=== PATIENT | male | born 1990 | race Caucasian/White ===

== ENCOUNTER 2018-12-07 20:38 | Emergency (ER) | payer MEDICAID, OTHER ==
[~2018-12-07] VITALS: Ht 180.3 cm; Wt 110.0 kg
[~2018-12-07 20:38] MED LIST: CLON-529 PO; ONDA4TAB6 PO
--- NOTE | 2018-12-07 22:31 | NUR ---
no appropriate RAP assessement. denies HI and SI. reports depression/sadness. no suicidal plan
[2018-12-07] MEDS ORDERED: HYDR-3686 PO (23:16)
== END 2018-12-07 23:36 | disposition home or self-care (01) ==
LOC: ER 20:38
DX: F32.9 Major depressive disorder, single episode, unspecified (principal); F17.200 Nicotine dependence, unspecified, uncomplicated; F11.10 Opioid abuse, uncomplicated; Z88.0 Allergy status to penicillin; Z88.2 Allergy status to sulfonamides; Z88.1 Allergy status to other antibiotic agents; Z79.899 Other long term (current) drug therapy
CPT/HCPCS: 99284

== ENCOUNTER 2023-10-06 00:49 | Inpatient (IN) | payer MEDICAID ==
[~2023-10-06] VITALS: Ht 180.3 cm; Wt 84.1 kg
[2023-10-06 01:27] LABS: BASOPHILS # (AUTO) 0.1 X10'3 (0-0.2); BASOPHILS % (AUTO) 1.1 % (0-1); EOSINOPHILS # (AUTO) 0.1 X10'3 (0-0.9); EOSINOPHILS % (AUTO) 1.1 % (0-6); HEMATOCRIT 39.2 % (42.0-52.0); HEMOGLOBIN 13.4 g/dl (14.0-17.9); LYMPHOCYTES # (AUTO) 3.5 X10'3 (1.1-4.8); LYMPHOCYTES % (AUTO) 39.4 % (21-51); MEAN CORPUSCULAR HEMOGLOBIN 30.2 PG (27.0-31.0); MEAN CORPUSCULAR HGB CONC 34.1 g/dL (33.0-36.5); MEAN CORPUSCULAR VOLUME 88.7 FL (78-98); MEAN PLATELET VOLUME 6.8 FL (7.4-10.4); MONOCYTES # (AUTO) 0.3 X10'3 (0-0.9); MONOCYTES % (AUTO) 3.3 % (2-12); NEUTROPHILS # (AUTO) 4.8 X10'3 (1.8-7.7); NEUTROPHILS % (AUTO) 55.1 % (42-75); PLATELET COUNT 346 X10'3 (140-440); RED BLOOD COUNT 4.42 X10'6 (4.70-6.10); RED CELL DISTRIBUTION WIDTH 13.2 % (11.5-14.5); WHITE BLOOD COUNT 8.8 X10'3 (4.5-11.0)
[2023-10-06 01:40] LABS: ALANINE AMINOTRANSFERASE 35 U/L (12-78); ALBUMIN 3.7 G/DL (3.4-5.0); ALBUMIN/GLOBULIN RATIO 1.1 (1.1-1.5); ALKALINE PHOSPHATASE 75 IU/L (46-116); ANION GAP 7 (8-16); ASPARTATE AMINO TRANSFERASE 30 U/L (10-37); BILIRUBIN,TOTAL 0.6 MG/DL (0.1-1.0); BLOOD UREA NITROGEN 11 MG/DL (7-18); BUN/CREATININE RATIO 9.7 (10.0-20.0); CALCIUM 9.2 MG/DL (8.5-10.1); CHLORIDE 102 MMOL/L (99-107); CREATININE 1.13 MG/DL (0.60-1.10); GLUCOSE 145 MG/DL (70-104); POTASSIUM 3.2 MMOL/L (3.5-5.1); SODIUM 138 MMOL/L (135-145); TOTAL CARBON DIOXIDE 29.1 MMOL/L (24-32); TOTAL PROTEIN 7.1 G/DL (6.4-8.2); eCRCL 99 ML/MIN; eGFR 75 ML/MIN
[2023-10-06 01:49] LABS: PRO BRAIN NATRIURETIC PEPTIDE 54 PG/ML (0-125)
[2023-10-06] MEDS ORDERED: potassium Cl 20 mEq SR tablet PO STA (01:58)
[2023-10-06] MEDS ORDERED: ondansetron 4mg rapidly disintigrating tab PO ONE (02:00)
[2023-10-06 02:20] LABS: ETHANOL < 10 MG/DL (<10)
[2023-10-06] MEDS ORDERED: iohexol 300mg/ml 100ml inj. ONE (02:26)
[2023-10-06] MEDS ORDERED: iohexol 350MG/ML 100ml bottle IV ONE (02:27)
[2023-10-06] MEDS ORDERED: potassium Cl 40MEQ/1/2NS 520ml 520 ML IV PRN (04:45)
[2023-10-06] MEDS ORDERED: magnesium hydroxide 30ml (MOM) UD suspension PO PRN (04:45)
[2023-10-06] MEDS ORDERED: potassium Cl 20 mEq SR tablet PO PRN (04:45)
[2023-10-06] MEDS ORDERED: ondansetron/PF 4mg/2ml inj IV PRN (04:45)
[2023-10-06] MEDS ORDERED: PERFLUTREN PROTEIN-A MICROSPHR (Optison) 0.22 MG/ML 3ML VIAL IV ONE (04:45)
[2023-10-06] MEDS ORDERED: magnesium Cl slow-release 64mg tablet PO PRN (04:45)
[2023-10-06] MEDS ORDERED: acetaminophen 325mg tablet PO PRN (04:45)
[2023-10-06] MEDS ORDERED: magnesium 2GM in 50ml NS 50 ML IV PRN (04:45)
[2023-10-06] MEDS ORDERED: mag hydrox/Alum hydrox/simeth 30ml oral suspension PO PRN (04:45)
[2023-10-06] MEDS ORDERED: magnesium 4gm in 100ml NS 100 ML IV PRN (04:45)
[2023-10-06 06:08] LABS: MAGNESIUM 1.9 MG/DL (1.5-2.4)
[2023-10-06 07:25] LABS: BILIRUBIN,URINE NEGATIVE (Neg); CLARITY,URINE CLEAR (Clear); COLOR,URINE YELLOW (Yellow); GLUCOSE, URINE NEGATIVE (Neg); KETONES,URINE NEGATIVE (Neg); LEUKOCYTE ESTERASE ,URINE NEGATIVE (Neg); NITRITES, URINE NEGATIVE (Neg); OCCULT BLOOD,URINE NEGATIVE (Neg); PROTEIN,URINE NEGATIVE (Neg); UROBILINOGEN,URINE 0.2 E.U/dL (0.2-1.0)
[2023-10-06 07:26] LABS: UA COLLECTION TYPE CLN CATCH MIDSTREAM
[2023-10-06 07:34] LABS: URINE AMPHETAMINE SCREEN POSITIVE (Neg); URINE BARBITUATE SCREEN NEGATIVE (Neg); URINE BENZODIAZEPINES SCREEN NEGATIVE (Neg); URINE CANNABINOID SCREEN POSITIVE (Neg); URINE COCAINE SCREEN NEGATIVE (Neg); URINE METHADONE SCREEN NEGATIVE (Neg); URINE OPIATE SCREEN NEGATIVE (Neg); URINE PHENCYCLIDINE SCREEN NEGATIVE (Neg)
[2023-10-06 07:45] VITALS: BP 111/76; PULSE 67; RESP 11; TEMP 98.1; O2SAT 96
[2023-10-06] MEDS: heparin, porcine 5000 units/ml vial SQ SCH ×2 (08:00→19:44)
[2023-10-06] MEDS: K and/or MAG REPLACEMENT MC SCH ×2 (08:00→20:00)
[2023-10-06] MEDS: docusate sod 100mg capsule PO SCH ×2 (08:00→20:00)
[2023-10-06 11:00] VITALS: BP 134/72; PULSE 61; RESP 16; TEMP 98.3; O2SAT 99
[2023-10-06] MEDS ORDERED: NO HOME MEDS (14:24)
[2023-10-06 15:00] VITALS: BP 113/70; PULSE 88; RESP 18; TEMP 98.2; O2SAT 99
[2023-10-06] MEDS: potassium Cl 20 mEq SR tablet PO PRN ×2 (16:48→21:06)
[2023-10-06 18:00] VITALS: BP 125/72; PULSE 60; RESP 16; TEMP 98.4; O2SAT 100
[2023-10-06 22:00] VITALS: BP 104/50; PULSE 57; RESP 18; TEMP 98.2; O2SAT 98
[2023-10-07] MEDS: potassium Cl 20 mEq SR tablet PO PRN (02:25)
[2023-10-07 02:30] VITALS: BP 121/63; PULSE 53; RESP 18; TEMP 98.3; O2SAT 99
[2023-10-07 06:54] LABS: ALANINE AMINOTRANSFERASE 29 U/L (12-78); ALBUMIN 3.2 G/DL (3.4-5.0); ALBUMIN/GLOBULIN RATIO 0.9 (1.1-1.5); ALKALINE PHOSPHATASE 75 IU/L (46-116); ANION GAP 6 (8-16); ASPARTATE AMINO TRANSFERASE 22 U/L (10-37); BILIRUBIN,TOTAL 0.2 MG/DL (0.1-1.0); BLOOD UREA NITROGEN 14 MG/DL (7-18); BUN/CREATININE RATIO 15.2 (10.0-20.0); CALCIUM 8.7 MG/DL (8.5-10.1); CHLORIDE 104 MMOL/L (99-107); CREATININE 0.92 MG/DL (0.60-1.10); GLUCOSE 111 MG/DL (70-104); MAGNESIUM 2.1 MG/DL (1.5-2.4); POTASSIUM 3.8 MMOL/L (3.5-5.1); SODIUM 140 MMOL/L (135-145); TOTAL CARBON DIOXIDE 30.4 MMOL/L (24-32); TOTAL PROTEIN 6.8 G/DL (6.4-8.2); eCRCL 122 ML/MIN; eGFR > 90 ML/MIN
[2023-10-07 07:16] VITALS: BP 121/68; PULSE 56; RESP 18; TEMP 98.3; O2SAT 100
[2023-10-07] MEDS: K and/or MAG REPLACEMENT MC SCH (08:00)
[2023-10-07] MEDS: docusate sod 100mg capsule PO SCH (08:00)
[2023-10-07] MEDS: heparin, porcine 5000 units/ml vial SQ SCH (08:44)
[2023-10-07 10:00] VITALS: BP 115/72; PULSE 61; RESP 13; TEMP 98.5; O2SAT 100
== END 2023-10-07 16:01 | disposition home or self-care (01) | DRG 204 ==
LOC: ER 00:50 → ED HOLD 04:48 → EDBEDREQ 06:57 → PCU 3S 07:30
PROVIDERS: ADMIT Internal Medicine; ATTEND Family Medicine
PROC: B32T1ZZ Computerized Tomography (CT Scan) of Left Pulmonary Artery using Low Osmolar Contrast (ICD-10-PCS; principal; 2023-10-06)
PROC: B3201ZZ Computerized Tomography (CT Scan) of Thoracic Aorta using Low Osmolar Contrast (ICD-10-PCS; 2023-10-06)
PROC: B32S1ZZ Computerized Tomography (CT Scan) of Right Pulmonary Artery using Low Osmolar Contrast (ICD-10-PCS; 2023-10-06)
DX: R55 Syncope and collapse (principal); N17.9 Acute kidney failure, unspecified; D64.9 Anemia, unspecified; S60.221A Contusion of right hand, initial encounter; F15.90 Other stimulant use, unspecified, uncomplicated; E87.6 Hypokalemia; F17.210 Nicotine dependence, cigarettes, uncomplicated; R00.1 Bradycardia, unspecified; W18.39XA Other fall on same level, initial encounter; Y93.89 Activity, other specified; Y92.89 Other specified places as the place of occurrence of the external cause; Y99.8 Other external cause status; Z88.0 Allergy status to penicillin; Z88.2 Allergy status to sulfonamides; Z88.1 Allergy status to other antibiotic agents
CPT/HCPCS: 36415; 70450; 71045; 71275; 72125; 73130; 80053; 80305; 80320; 81003; 83735; 83880; 84443; 84484; 85025; 93306; 95816; 99285; G0378; J1644; J3490; Q9967